=== PATIENT | female | born 1955 | race Two or more races ===

== ENCOUNTER 2022-01-01 08:35 | Outpatient (CLI) | payer OTHER ==
[~2022-01-01 08:35] MED LIST: XOPENEX0.63 MG/3 IH; ZITHROMAX500 MG PO; ZYNCOF 20-400120 ML PO
== END 2022-01-01 08:40 | disposition home or self-care (01) ==
LOC: RAD 08:35
PROVIDERS: ATTEND Internal Medicine
DX: R13.12 Dysphagia, oropharyngeal phase (principal); J44.9 Chronic obstructive pulmonary disease, unspecified